=== PATIENT | female | born 2005 | race Caucasian/White ===

== ENCOUNTER 2024-08-06 12:00 | Emergency (ER) | payer BC, SELFPAY ==
[2024-08-06] VITALS (17 sets, daily range): BP systolic 97–119; BP diastolic 65–92; PULSE 66–129; RESP 16; TEMP 36.6; O2SAT 96–100
--- NOTE | ~2024-08-06 | XR_ITS ---
Clinical Indication: Syncope PA and lateral views of the chest: Comparison: None Findings: The lungs are clear, without evidence of focal consolidation or pleural effusion. Cardiome diastinal silhouette is within normal limits. Bones and soft tissues are unremarkable. Impression: Normal chest. Reviewed, dictated and finalized at location . Impression: Normal chest.
--- NOTE | 2024-08-06 12:13 | ECG_ITS ---
Test Date: 2024-08-06 12:23:59 Measurements Intervals [place] Rate: 78 P: 40 VA: 147 QRS: 38 QRSD: 86 T: 23 QT: 381 QTc: 434 Interpretive Statements SINUS RHYTHM WITH SINUS ARRHYTHMIA BASELINE ARTIFACT- III, V1-V6 NORMAL ECG No previous ECG available for comparison Electronically Signed On 08-06-2024 12:55:45 CDT by Rico Xavier D.O.
[2024-08-06 12:27] LABS: BEDSIDEPREGUCG Negative (Negative)
[2024-08-06 12:35] LABS: Basophils Percent Auto 0.5 % (0.2-1.2); Eosinophils Absolute Auto 0.1 K/mm3 (0-0.3); Eosinophils Percent Auto 0.9 % (0-4.4); Hematocrit 41.3 % (37.0-47.0); Hemoglobin 13.8 g/dL (12.0-15.0); Immature Granulocyte Absolute 0.01 K/mm3 (0.00-0.031); Immature Granulocyte Percent A 0.2 % (0-0.5); Lymphocytes Absolute Auto 2.31 K/mm3 (0.9-3.2); Lymphocytes Percent Auto 35.9 % (18.3-44.2); Mean Corpuscular HGB Conc 33.4 g/dl (32-36); Mean Corpuscular Hemoglobin 30.9 pg (26-34); Mean Corpuscular Volume 92.4 fl (80-100); Mean Platelet Volume 9.9 fl (7.4-10.4); Monocytes Absolute Auto 0.5 K/mm3 (0.1-0.6); Monocytes Percent Auto 8.2 % (2.6-8.5); Neutrophils Absolute Auto 3.5 K/mm3 (1.3-6.7); Neutrophils Percent Auto 54.3 % (45.5-73.1); Platelet Count Result 231 k/mm3 (150-375); Red Blood Count 4.47 M/mm3 (4.2-5.4); White Blood Count 6.4 K/mm3 (4.5-10.0)
[2024-08-06 12:51] LABS: Alanine Aminotransferase 19 U/L (6-35); Albumin Level 4.8 g/dL (3.5-5.1); Alkaline Phosphatase 73 U/L (38-126); Anion Gap 11 mmol/L (4-12); Aspartate Amino Transferase 24 U/L (14-36); Bilirubin,Total 0.4 mg/dL (0.2-1.3); Blood Urea Nitrogen 11 mg/dL (7-17); Calcium 9.6 mg/dL (8.4-10.2); Carbon Dioxide 23 mmol/L (22-30); Chloride 105 mmol/L (98-107); Estimated CRCL calculation 90 ml/min; Estimated Glomerular Filt Rate > 60; Glucose 87 mg/dL (65-110); Potassium 4.3 mmol/L (3.4-5.0); Sodium 139 mmol/L (137-145)
--- NOTE | 2024-08-06 13:01 | ED_ITS ---
HPI - Weakness General Chief complaint: Weakness Stated complaint: weakness, near syncopy Time Seen by Provider: 08/06/24 12:15 Source: patient Mode of arrival: ambulatory Limitations: no limitations History of Present Illness HPI Narrative: Patient is a 19 y/o female who presents to the ED with c/o lightheadedness. Patient reports over the past several days, she has been feeling lightheaded/dizzy. Worse with movement. She states she had a near syncopal episode in class yesterday. Did not fully lose consciousness. States she just feels off. C/o diffuse heaviness in extremities. Reports intermittent MEDINA. Denies current MEIDNA. Denies vision changes, focal numbness or weakness, CP, SOB, room spinning sensation, ear pain or ringing. States she has been eating and drinking normally. Related Data Allergies Allergy/AdvReac Type Severity Reaction Status Date / Time Penicillins Allergy Intermediate Rash Verified 08/06/24 12:25 Review of Systems 2 Review of Systems: All systems reviewed & are unremarkable except as noted in HPI. All systems reviewed & are unremarkable except as noted in HPI and below Exam 2 Narrative: GENERAL: Well appearing, thin, non-toxic, in no acute distress. HEAD: Normocephalic, atraumatic. EENT: PERRL/EOMI, conjunctiva clear, no nystagmus. TMs clear bilaterally. Small amount of cerumen in left ear canal without obstruction or impaction. RESPIRATORY: Airway patent, respirations nonlabored. Clear to auscultation bilaterally, no rales, rhonchi, wheezing. CARDIOVASCULAR: Regular rate and rhythm without murmurs, rubs, or gallops. Peripheral pulses intact. MUSCULOSKELETAL: Moves all extremities. No gross deformities. No peripheral edema. SKIN: Warm, dry, normal color. NEURO: A&O X3. Speech clear. Cranial nerves II-XII grossly intact. Steady gait. No ataxic movements. Equal supervisor powder and primer canning strength bilaterally. Strength 5 of 5 in upper and lower extremities bilaterally. No focal deficits. PSYCHIATRIC: Appropriate mood and affect. Normal interaction. Course Vital Signs Vital signs: Vital Signs Temperature 97.8 F 08/06/24 12:03 Pulse Rate 115 H 08/06/24 12:03 Respiratory Rate 16 08/06/24 12:03 Blood Pressure 113/77 08/06/24 12:03 Pulse Oximetry 100 08/06/24 12:03 Oxygen Delivery Room Air 08/06/24 12:03 Temperature 97.8 F 08/06/24 12:03 Pulse Rate 91 08/06/24 14:00 Respiratory Rate 16 08/06/24 12:03 Blood Pressure 105/75 08/06/24 13:01 Pulse Oximetry 100 08/06/24 14:00 Oxygen Delivery Room Air 08/06/24 12:03 MDM - Weakness MDM Narrative Medical decision making narrative: Patient presented to ED with several day history of lightheadedness. States she just feels off. Patient was initially mildly tachycardic upon arrival. This was improved by the time of my evaluation. No significant orthostatic hypotension noted with orthostatic VS. HR did increase slightly with sitting to standing. Will initiate fluids. Neurologically intact. No focal deficits appreciated on exam. Laboratory studies are otherwise fairly unremarkable. No leukocytosis or anemia. Stable electrolytes. Stable kidney function. UA without signs of infection. Urine negative. Chest x-ray is clear. EKG without ischemic changes. Discussed overall reassuring workup with patient. She is feeling improved after fluids. Feel she is safe for discharge home at this time. Recommended close follow-up with PCP for further evaluation. Recommended she continue to stay well hydrated at home, given strict return precautions. She agrees with plan. Discharged in stable condition. Medical Records Attestation: I reviewed the patient's medical records. Lab Data Attestation: I reviewed the patient's lab results. 08/06/24 12:21 08/06/24 12:21 Labs: Lab Results 08/06/24 08/06/24 08/06/24 Range/Units 12:20 12:21 12:26 WBC 6.4 (4.5-10.0) K/mm3 RBC 4.47 (4.2-5.4) M/mm3 Hgb 13.8 (12.0-15.0) g/dL Hct 41.3 (37.0-47.0) % MCV 92.4 (80-100) fl MCH 30.9 (26-34) pg MCHC 33.4 (32-36) g/dl RDW 12.0 (11.5-14.5) % Plt Count 231 (150-375) k/mm3 MPV 9.9 (7.4-10.4) fl Immature Gran % (Auto) 0.2 (0-0.5) % Neut % (Auto) 54.3 (45.5-73.1) % Lymph % (Auto) 35.9 (18.3-44.2) % [place] % (Auto) 8.2 (2.6-8.5) % Eos % (Auto) 0.9 (0-4.4) % Baso % (Auto) 0.5 (0.2-1.2) % Lymph # (Auto) 2.31 (0.9-3.2) K/mm3 [place] # (Auto) 0.5 (0.1-0.6) K/mm3 Eos # (Auto) 0.1 (0-0.3) K/mm3 Baso # (Auto) 0.0 (0.0-0.1) K/mm3 Abs Immat Gran (auto) 0.01 (0.00-0.031) K/mm3 Absolute Neuts (auto) 3.5 (1.3-6.7) K/mm3 Absolute Nucleated RBC 0.000 (0.0-0.012) K/mm3 Nucleated RBC % 0.0 (0.0-0.2) % Sodium 139 (137-145) mmol/L Potassium 4.3 (3.4-5.0) mmol/L Chloride 105 (98-107) mmol/L Carbon Dioxide 23 (22-30) mmol/L Anion Gap 11 (4-12) mmol/L BUN 11 (7-17) mg/dL Creatinine 0.61 L (0.7-1.0) mg/dL Estim Creat Clear Calc 90 ml/min Estimated GFR > 60 (59 - ) Glucose 87 (65-110) mg/dL Calcium 9.6 (8.4-10.2) mg/dL Magnesium 1.9 (1.6-2.3) mg/dL Total Bilirubin 0.4 (0.2-1.3) mg/dL AST 24 (14-36) U/L ALT 19 (6-35) U/L Alkaline Phosphatase 73 (38-126) U/L Total Protein 8.0 (6.3-8.2) g/dL Albumin 4.8 (3.5-5.1) g/dL Urine Color (Yellow) Urine Appearance (Clear) Urine pH (5.0-9.0) Ur Specific [place] (1.001-1.035) Urine Protein (Negative) mg/dL Urine Glucose (UA) (Negative) mg/dL Urine Ketones (Negative) mg/dL Ur Blood (Man) (Negative) Urine Nitrate (Negative) Urine Bilirubin (Negative) Urine Urobilinogen (<2.0) mg/dL Leukocyte Esterase Rfl (Negative) FILOMENA/UL Urine RBC (0-2) /hpf Urine WBC (0-3) /hpf Ur Squamous Epith Cells (Few) /hpf Urine Bacteria /hpf Urine Casts POC Urine HCG, Qual Negative (Negative) 08/06/24 Range/Units 13:44 WBC (4.5-10.0) K/mm3 RBC (4.2-5.4) M/mm3 Hgb (12.0-15.0) g/dL Hct (37.0-47.0) % MCV (80-100) fl MCH (26-34) pg MCHC (32-36) g/dl RDW (11.5-14.5) % Plt Count (150-375) k/mm3 MPV (7.4-10.4) fl Immature Gran % (Auto) (0-0.5) % Neut % (Auto) (45.5-73.1) % Lymph % (Auto) (18.3-44.2) % [place] % (Auto) (2.6-8.5) % Eos % (Auto) (0-4.4) % Baso % (Auto) (0.2-1.2) % Lymph # (Auto) (0.9-3.2) K/mm3 [place] # (Auto) (0.1-0.6) K/mm3 Eos # (Auto) (0-0.3) K/mm3 Baso # (Auto) (0.0-0.1) K/mm3 Abs Immat Gran (auto) (0.00-0.031) K/mm3 Absolute Neuts (auto) (1.3-6.7) K/mm3 Absolute Nucleated RBC (0.0-0.012) K/mm3 Nucleated RBC % (0.0-0.2) % Sodium (137-145) mmol/L Potassium (3.4-5.0) mmol/L Chloride (98-107) mmol/L Carbon Dioxide (22-30) mmol/L Anion Gap (4-12) mmol/L BUN (7-17) mg/dL Creatinine (0.7-1.0) mg/dL Estim Creat Clear Calc ml/min Estimated GFR (59 - ) Glucose (65-110) mg/dL Calcium (8.4-10.2) mg/dL Magnesium (1.6-2.3) mg/dL Total Bilirubin (0.2-1.3) mg/dL AST (14-36) U/L ALT (6-35) U/L Alkaline Phosphatase (38-126) U/L Total Protein (6.3-8.2) g/dL Albumin (3.5-5.1) g/dL Urine Color Yellow (Yellow) Urine Appearance Clear (Clear) Urine pH 7.5 (5.0-9.0) Ur Specific [place] 1.004 (1.001-1.035) Urine Protein Negative (Negative) mg/dL Urine Glucose (UA) Negative (Negative) mg/dL Urine Ketones Negative (Negative) mg/dL Ur Blood (Man) 3+ H (Negative) Urine Nitrate Negative (Negative) Urine Bilirubin Negative (Negative) Urine Urobilinogen 0.2 (<2.0) mg/dL Leukocyte Esterase Rfl Trace H (Negative) FILOMENA/UL Urine RBC 0-2 (0-2) /hpf Urine WBC 0-5 (0-3) /hpf Ur Squamous Epith Cells Few (Few) /hpf Urine Bacteria None seen /hpf Urine Casts 0-2 POC Urine HCG, Qual (Negative) Imaging Data Attestation: I personally reviewed and interpreted this imaging study as follows: Radiologist's impression: ITS Impressions Chest X-Ray 08/06/24 13:15 Impression: Normal chest. ECG Data EKG #1: Attestation: I personally reviewed and interpreted this ECG as follows: ECG completion date: 08/06/24 ECG completion time: 12:23 EKG Interpretation: normal rate (78), sinus rhythm (With sinus arrhythmia), no ST changes and other (baseline artifact/wander) Discharge Plan Discharge Clinical Impression: Positional lightheadedness Patient Disposition: Home, Self-Care Condition: Stable Instructions: Antibiotic Form, Near Syncope (ED), Lightheadedness (ED) Additional Instructions: Your workup here was reassuring. Stay well hydrated at home. Recommend small frequent meals throughout the day. Follow-up with your primary care doctor for further evaluation. Return to ED if you experience worsening or severe symptoms, passing out, unable to keep down food or drink, chest pain, difficulty breathing, severe dizziness, or any other symptoms of concern. Patient Language: Swedish Follow-up/Referrals: Fidel Curry MD [Physician] - (PRIMARY CARE) UNKNOWN,DOCTOR [Primary Care Provider] - Time of Disposition: 14:55
[2024-08-06] MEDS: SODIUM CHLORIDE 0.9% IV 1,000 ML 999 ML IV CONT (13:13)
--- OUTSIDE RECORDS SUMMARY | 2024-08-06 13:25 | XMS_ITS ---
Author Organization [facility], [facility]. 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 Already a PPD placed, going he would read Immunizations up-to-date. I am concerned that she may require blood titers drawn, she will investigate. Likely needs a varicella, rubella and hepatitis-B sexually active but intolerant of systemic oral contraceptives. We discussed options, perhaps IUD would be ideal. I asked her to do some research on this, told her that Dr. 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 Already a PPD placed, going he would read Immunizations up-to-date. I am concerned that she may require blood titers drawn, she will investigate. Likely needs a varicella, rubella and hepatitis-B sexually active but intolerant of systemic oral contraceptives. We discussed options, perhaps IUD would be ideal. I asked her to do some research on this, told her that Dr. 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 TAVisual Acuity complete (OD 20/25, OS 20/70)-- states she is awaiting prescription glassesRoom 1Visual Acuity * HPI: D EPRESSION SCREENING: PHQ-2 (2015 Edition) L ittle interest or pleasure in doing things? Not at all, Feeling down, depressed, or hopeless? Not at all. [age]-year-old here for physical exam. yanelis oinereyda to be attending nursing school. Already had a PPD placed. Complete immunizations, she has not sure if she needs to get blood titers drawn and a Monogamous relationship, sexually active. Found the control pill intolerable as far as mood changes and weight gain. We discussed other options. * Medical History: * Surgical History: D enies Past Surgical History * Ocular Surgical History: * Hospitalization/Major Diagno stic Procedure: D enies Past Hospitalization * Family History: F ather: alive. M other: alive. NONE. * Social History: T OBACCO USE: T OBACCO USE - A re you a: n ever Tobacco user A NAVNEET-C: A NAVNEET C - H ow often did you have a drink containing alcohol in the past year? N ever (0 points) H ow many drinks did you have on a typical day when you were drinking in the past year? 1 or 2 (0 points) H ow often did you have six or more drinks on one occasion in the past year? N ever (0 points) C OMPREHENSIVE HEALTH ASSESSEMENT: M arital status: Single. 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 * Medications: D iscontinuedNorgestim-Eth Estrad Triphasic 0.18/0.215/0.25 MG-25 MCG Tablet 1 tablet Orally Once a day Medication List reviewed and reconciled with the patientDiscontinued Norgestim-Eth Estrad Triphasic 0.18/0.215/0.25 MG-25 MCG Tablet 1 tablet Orally Once a day Medication List reviewed and reconciled with the patient * Allergies: P enicillin: hives - AllergyAmoxicillin: hives - Allergyno[Allergies Verified] Objective: * Vitals: H t:61in, Wt:116.6lbs, BMI:22.03Index, BP-Treatment: 100/70 mm HG, HR: 84 /min, Temp: 97.8 F, BMI Percentile: 54.25, Height Percentile: 9.85, Vision (L): 20/70 L Eye, Vision (R): 20/25 R Eye. * Examination: Pravin modesta focused exam: G eneral: Cooperative. No acute distress. HEENT: Normocephalic. Pupils equal round and reactive to light and accommodation bilaterally. No conjunctiva injection. Tympanic membranes clear bilaterally. Nasal mucosa pink and moist. Oropharynx clear without erythema or exudate. Moist oral mucosa. Neck: Supple, nontender, no lymphadenopathy. No thyromegaly. Lungs: Clear to auscultation bilaterally. No wheezes, rales, or rhonchi. Cardiovascular: Heart regular rate and rhythm, no murmurs, rubs, or gallops. Abdomen: Soft, nontender, nondistended, normoactive bowel sounds. Extremities: No edema. Skin: No rashes. Neuro: No gross focal deficits. No motor tics. Psych: Appropriate affect. Well kempt. Good eye contact. Normal speech pattern. . Therapeutic Interventions: Assessment: * Assessment: 1. E ncounter for general adult medical examination without abnormal findings - Z00.00 (Primary) 2 . D ysparjimi, female - N94.10 Plan: * Treatment: * Procedure Codes: 9 9173 VISUAL ACUITY SCREEN, Modifiers: 59 Care Plan: * Problems: * Images: Billing Information: * Visit Code: 47678 Preventive Care Est Pt. Age 18-39. * Procedure Codes: 39417 VISUAL ACUITY SCREEN. Modifiers: 59 Care Plan Details* * Sign off status: Completed true * Provider: Inez Monreal MD Date: 0 11/06/2023 Generated for Felisa dawn/Ed/eTaldasmitting on: 0 08/06/2024 01:25 PM CDT History and Physical Notes * HPI (History of Present Illness) Category Sub-Category Detail Notes Category Not es DEPRESSION SCREENING PHQ-2 (2015 Edition) Little interest or pleasure in doing things? Not at all, Feeling down, depressed, or hopeless? Not at all 18-year-old here for physical exam. 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 Already had a PPD placed. Complete immunizations, she has not sure if she needs to get blood titers drawn and a Monogamous relationship, sexually active. Found the control pill intolerable as far as mood changes and weight gain. We discussed other options Examination Category Sub-Category Detail Notes Category Not es Problem focused exam General: Cooperative. No acute distress. HEENT: Normocephalic. Pupils equal round and reactive to light and accommodation bilaterally. No conjunctiva injection. Tympanic membranes clear bilaterally. Nasal mucosa pink and moist. Oropharynx clear without erythema or exudate. Moist oral mucosa. Neck: Supple, nontender, no lymphadenopathy. No thyromegaly. Lungs: Clear to auscultation bilaterally. No wheezes, rales, or rhonchi. Cardiovascular: Heart regular rate and rhythm, no murmurs, rubs, or gallops. Abdomen: Soft, nontender, nondistended, normoactive bowel sounds. Extremities: No edema. Skin: No rashes. Neuro: No gross focal deficits. No motor tics. Psych: Appropriate affect. Well kempt. Good eye contact. Normal speech pattern.
--- OUTSIDE RECORDS SUMMARY | 2024-08-06 13:25 | XMS_ITS | Clinical Summary ---
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 Active Acetaminophen (TYLENOL PO) Take 2 Capsules by mouth as needed. 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 Gender Identity Not on file Sexual Orientation Not on file Last Filed Vital Signs Vital Sign Reading Time Taken Comments Blood Pressure 97/67 01/18/2021 3:30 PM CDT Pulse 91 01/18/2021 3:30 PM CDT Temperature 37.8 C (100 F) 01/18/2021 3:30 PM CDT Respiratory Rate 20 01/18/2021 3:30 PM CDT Oxygen Saturation 98% 01/18/2021 3:30 PM CDT Inhaled Oxygen Concentration - - Weight 46 kg (101 lb 6.4 oz) 01/18/2021 3:30 PM CDT Height 152.4 cm (5') 01/18/2021 3:30 PM CDT Body Mass Index 19.8 01/18/2021 3:30 PM CDT Plan of Treatment Health Maintenance Due Date Last Done Comments Hepatitis C Virus (HCV) Screening 2004 Meningococcal B Immunization (1 of 2 - Standard) 2020 Hepatitis B Immunization (1 of 3 - 19+ 3-dose series) 2023 Influenza Immunization (#1) 2024 02/06/2006, 1 2004 SARS-COV-2 Immunization (2 - season) 2024 12/21/2020 Respiratory Syncytial Virus (RSV) Immunization (Adult) (1 - 1-dose 75+ series) 2079 Pneumococcal Immunization Combined Aged Out 07/03/2005, 2004, 2004, Additional history exists No longer eligible based on patient's age to complete this topic DTaP/Tdap/Td Immunization Discontinued 06/25/2015 TdaP Immunization Completed 06/25/2015 Human Papillomavirus (HPV) Immunization Completed 08/10/2017, 06/25/2015 Meningococcal Immunization (ACWY) Completed 10/28/2020, 06/25/2015 Rotavirus Immunization Aged Out No lo nger eligible based on patient's age to complete this topic Insurance [facility] Care Teams Forklift Picker Relationship Specialty Start Date End Date Kevan Currie MD [address] [place] [address] PCP - General 05/09/07
--- OUTSIDE RECORDS SUMMARY | 2024-08-06 13:25 | XMS_ITS | Patient Health Record ---
Author Organization [facility]. Address [address] [place], [place] [id number] Care Team Providers Care Health Actuary Name Role Phone Frances Sharpe Primary Care Provider Segun Monreal Unavailable [phone] Allergies Allergen (clinical drug ingredient) Drug/Non Drug Allergy documented on EMR Reaction Allergy Type Onset Date Status amoxicillin Amoxicillin hives Drug Allergy Act teresita Penicillin hives Drug Allergy Active Reason For Referral No Information Immunizations Vaccine Route Administration Date Status Comme nts Varivax Unknown 03/10/2005 Administered See scanned doc TB Varivax Unknown 03/13/2008 Administered See scanned doc TB TDaP over 7 yrs. (Adacel) Unknown 06/25/2015 Administer ed See scanned doc TB Prevnar PCV7 Unknown 2004 Administered See scanne d doc TB Prevnar PCV7 Unknown 2004 Administered See scanne d doc TB Prevnar PCV7 Unknown 2004 Administered See scanne d doc TB Prevnar PCV7 Unknown 07/03/2005 Administered See scanne d doc TB Poliovirus - IPV Unknown 2004 Administered See sc anned doc TB Poliovirus - IPV Unknown 2004 Administered See sc anned doc TB Poliovirus - IPV Unknown 03/13/2008 Administered See sc anned doc TB MMR Unknown 03/10/2005 Administered See scanned doc TB MMR Unknown 03/13/2008 Administered See scanned doc TB Meningococcal MCV4P Unknown 06/25/2015 Administered See scanned doc TB Meningococcal MCV4P Unknown 10/28/2020 Administered See scanned doc TB HPV (unspecified formulation) Unknown 06/25/2015 Administered See scanned doc TB HPV (unspecified formulation) Unknown 08/10/2017 Administered See scanned doc TB Hib (unspecified formulation) Unknown 2004 Administered See scanned doc TB Hib (unspecified formulation) Unknown 2004 Administered See scanned doc TB Hib (unspecified formulation) Unknown 2004 Administered See scanned doc TB Hepatitis B (unspecified formulation) Unknown 2004 Administered See scanned doc TB Hepatitis B (unspecified formulation) Unknown 2004 Administered See scanned doc TB Hepatitis B (unspecified formulation) Unknown 2004 Administered See scanned doc TB Hep A (unspecified formulation) Unknown 02/06/2006 Administered See scanned doc TB Hep A (unspecified formulation) Unknown 03/19/2009 Administered See scanned doc TB DTaP, younger than 7yrs Unknown 2004 Administered See scanned doc TB DTaP, younger than 7yrs Unknown 2004 Administered See scanned doc TB DTaP, younger than 7yrs Unknown 2004 Administered See scanned doc TB DTaP, younger than 7yrs Unknown 07/03/2005 Administered See scanned doc TB DTaP, younger than 7yrs Unknown 03/13/2008 Administered See scanned doc TB Social History Tobacco Use: Social History Observation Description Date Details (start date - stop date) Never Smoker NA - NA Sex Assigned At : Social History Observation Description Sex Assigned At Female TOBACCO USE - Question Answer Notes Are you a: never Tobacco user Section Notes: no tobacco, no etoh, single, Jr @ [employer] (21-22) no tobacco, no etoh, single, Freshman @[employer] no tobacco, no etoh, single, Freshman @[employer] no tobacco, no etoh, single, no children, 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. [address] [place] [address] [place] [id number] 11/06/2023 Segun Monreal Dyspareunia, female N94.10 and Encounter for general adult medical examination without abnormal findings Z00.00 [facility]. [address] [place], [place] [id number] 10/31/2023 Frances Sharpe [facility] [address] [place], [place] [id number] 10/31/[address] [facility]. [address] [place], [place] [id number] 11/06/2023 Frances Sharpe Assessments Encounter Date Diagnosis (ICD Code) Assessment Notes Treatment Notes Treatment Clinical Notes Section Notes 11/06/2023 Encounter for general adult medical examination [...] and JANENE Hudson place these on site 11/06/2023 Dyspareunia, female (ICD-10 - N94.10) Plan Of Treatment No Information Insurance Providers Payer Name Payer Address Payer Phone Subscriber Number Group Number Insured Name Patient Relationship to Insured Coverage Start Date Coverage End Date [facility] [address] [place] [address] [id number] Rick Renee Child - Insured does not have Financial Responsibility (includes legally adopted child) Medical (General) History Surgical History Surgery Date(Month/Year)
--- OUTSIDE RECORDS SUMMARY | 2024-08-06 13:25 | XMS_ITS ---
Author Organization [facility] Address [address] [place], [place] [id number] Care Team Providers Care Chief Administrative Officer Name Role Phone Frances Sharpe Primary Care Provider REASON FOR VISIT Physical Paperwork Social History Sex Assigned At : Social History Observation Description Sex Assigned At Female Encounters Encounter Location Date Provider Diagnosis [facility] [address], [place] [id number] 11/06/2023 Frances Sharpe Plan Of Treatment No Information Progress Notes * Charli MONROE NDOB:[birth year] (18 yo F)Acc No.[id number]:11/06/2023 Patient: Andrei Charli HUTCHINSON :2005 A ge:18 Y S ex:Female Address:[address], [place], [address] * true * Date: Generated for Printi ng/Fahaimg/eTransmitting on: 0 08/06/2024 01:24 PM CDT
--- OUTSIDE RECORDS SUMMARY | 2024-08-06 13:25 | XMS_ITS ---
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
--- OUTSIDE RECORDS SUMMARY | 2024-08-06 13:25 | XMS_ITS | Continuity of Care Document ---
Author Organization [facility], [place] Address [address] [place] [address] Phone Care Team Providers Care Photographic Engineer Name Role Phone Ann Alvarado OD Unavailable Unavailable Allergies, Adverse Reactions, Alerts Substance Reaction Status Criticality Penicillins Hives / Skin Rash(mild) Active Low amoxicillin Hives / Skin Rash(mild) Active Low Medications Medication Instructions Dosage Effective Dates (start - stop) Status Comments Zithromax Z-Angelo 250 mg tablet take 2 tablet by oral route every day for 1 day then 1 tablet (250 mg) by oral route once daily for 4 days 500 MG - No Longer Active Procedures Procedure Date EYE EXAM ESTABLISHED PAT Trini Hydrating Compress REFRACTION EYE EXAM, NEW PATIENT Vision [facility] frames purchases Single Vision Lens Lens Polycarb A/R Standard UV Lens EYE EXAM, EXISTING PATIENT VISION REFRACTION OPTIONAL UPDATE EYE EXAM, EXISTING PATIENT VISION REFRACTION NO UPDATE EYE EXAM, NEW PATIENT VISION Advance Directives Directive Yes / No Effective Date File Name No Information Encounters Encounter Description Practice Location Reason(s) For Visit Diagnoses Date Provider Providers Copied on Encounter [facility], [facility], [address] [place], [place], [id number] , [place] tel: [phone] [facility] bump (chief complaint)b ump (chief complaint) Chalazion left lower eyelidHordeolum internum left lower eyelid 1 Jenny Juarez. [address] [facility], [place], [place], [id number] , [place]. tel: [phone] [facility], [address] [place] [address], [facility] [place] [address] , [place] tel: [phone] [facility] squinting to see (chief complaint)s quinting to see (chief complaint) Myopia, bilateralRegular astigmatism, bilateralAnisometrop ia 9 Daniel Lieberman. [address] [place] [address], [facility] [place] [id number] , [place]. tel: [phone] [facility], [address] [place] [address], [facility] [place] [address] , [place] tel: [phone] [facility] No Information 5 Loco Pavonneth. [address] [place] [address], [place], [id number] , [place]. tel: [phone] [facility], [address] [place] [address], [facility] [place] [address] , [place] tel: [phone] [facility] blurry vision (chief complaint)b lurry vision (chief complaint) Examination of eyes and visionMyopia 5 Loco Julioh. [address] [facility], [place], [address] , [place]. tel: [phone] [facility], [address] [place] [address], [facility] [place] [address] , [place] tel: [phone] [facility] no problems with V/A and no complaints (chief complaint) Examination of eyes and visionExamination of eyes and vision 2 Loco Julioh. [address] [place] [address], [place], [id number] , [place]. tel: [phone] [facility], [facility], [address] [facility], [place], [place], [id number] , tel: [phone] [facility] No Information 0 Loco Fairbanks. [address] [place], [place], [address] , [place]. tel: [phone] Family History Family Member Type Diagnosis Age At Onset Father Problem (finding) Alive and well Great Grandparents Problem (finding) cataract Great Grandfather Problem (finding) Heart Disease Grandmother Problem (finding) asthma Grandmothers Problem (finding) Arthritis Grandmothers Problem (finding) Diabetes mellitus Grandmother Problem (finding) stroke Grandparents Problem (finding) HBP Problem (finding) No Family history of Gl aucoma Problem (finding) No Family history of St rabismus Problem (finding) No Family hist ory of Respiratory Disease Problem (finding) No Family hist ory of Retinal Disorders Problem (finding) No Family hist ory of Macular Degeneration Payers Payer name Insurance type Covered republican ID Authoriza tion(s) [facility] [id number] Social History Type Description Quantity Date Captured Comments Alcohol Use Details Unknown Caffeine Use Details Unknown Tobacco Use Status Current non-smoker Smoking Status Never smoker Non-Smoking Tobacco Use Details : No Details Available : No Details Available Sex Female Chief Complaint And Reason For Visit From encounter dated '11/19/2020 10:45'. bump (chief complaint). Description: The 15 Year 8 Months old female presents for bump in the LLL. It started about 7 month(s) ago. Pt reports that she has had a bump on the inside of LLL for the past 7 mos. Pt states that she was using WWC TID OS but stopped about 1 month ago since WWC only seemedto make LLL more inflamed. Otherwise vision good, stable and constant D & N c gls OU. Pt did not bring gls. The patient denies pain or discomfort and COVID-19 symptoms - temperature normal. Pt is not using any eye meds OU. bump (chief complaint) Reason For Referral Reason For Referral No Information History Of Present Illness Encounter Date Complaint History Of Prese nt Illness bump The 15 Year 8 Mo nths old female presents for bump in the LLL. It started about 7 month(s) ago. Pt reports that she has had a bump on the inside of LLL for the past 7 mos. Pt states that she was using WWC TID OS but stopped about 1 month ago since WWC only seemed to make LLL more inflamed. Otherwise vision good, stable and constant D & N c gls OU. Pt did not bring gls. The patient denies pain or discomfort and COVID-19 symptoms - temperature normal. Pt is not using any eye meds OU. squinting to see The 13 Year 7 M onths old female presents for f/u Myopia. Pt reports squinting to see in the right eye and left eye since losing gls in 2016. It affects distance vision. Pt reports near is fine without correction. The patient denies pain or discomfort. Pt not using eye meds or OTC AT's. blurry vision The 9 Year 7 Mo nths old female presents for evaluation of Myopia OU. Pt reports blurry vision in the right eye and left eye. It started about 6 month(s) ago. The onset was gradual. It affects distance vision. It occurs when at school seeing the board. The patient denies pain or discomfort OU. Pt not using any eye meds OU. Functional Status Date Functional Assessmen t No Information Instructions Date Instruction Additional Infor maninder Impression/Plan Impression/Plan Follow up - 1-2 year s with [facility] for Ref T&D. Impression/Plan - Op tional gls Rx update can sharpen vision for distance. Can wear only for specific tasks & take off for physical activity. No glaucoma, ARMD, or cataracts. Recommend f/u q 1-2 years, [facility]CI if problems or changes. - Return in 1-2 year s with [facility] for Ref T & D. Related to Normal Healthy Exam Normal Healthy Exam OU - Pt has no need for glasses. Eyes are healthy. OU: New glasses Rx was not given today. Will continue to observe condition and or symptoms. Educational materials provided:none needed. Related to Normal Healthy Exam Assessments Type Assessment Date assessment Chalazion left lower eyelid assessment Hordeolum internum left lower ey elid Patient Care Teams Name Effective Dates (start - stop) Status Members No Information
[2024-08-06 13:39] LABS: Magnesium 1.9 mg/dL (1.6-2.3)
--- OUTSIDE RECORDS SUMMARY | 2024-08-06 13:44 | XMS_ITS | Continuity of Care Document ---
Author Organization [facility], [place] Address [address] [place] [address] Phone Care Team Providers Care International Nurse Name Role Phone Ann Alvarado OD Unavailable [...] Compress REFRACTION EYE EXAM, NEW PATIENT Vision [facility] frames purchases Single Vision Lens Lens Polycarb A/R Standard UV Lens EYE EXAM, EXISTING PATIENT VISION REFRACTION OPTIONAL UPDATE EYE EXAM, EXISTING PATIENT VISION REFRACTION NO UPDATE EYE EXAM, NEW PATIENT VISION Advance Directives Directive Yes / No Effective Date File Name No Information Encounters Encounter Description Practice Location Reason(s) For Visit Diagnoses Date Provider Providers Copied on Encounter [facility], [facility], [address] [place], [place], [id number] , [place] tel: [phone] [facility] bump (chief complaint)b ump (chief complaint) Chalazion left lower eyelidHordeolum internum left lower eyelid 1 Jenny Juarez. [address] [facility], [place], [place], [id number] , [place]. tel: [phone] [facility], [address] [place] [address], [facility] [place] [place] [place], [address] , [place] tel: [phone] [facility] squinting to see (chief complaint)s quinting to see (chief complaint) Myopia, bilateralRegular astigmatism, bilateralAnisometrop ia 9 Daniel Lieberman. [address] [place] [address], [facility] [place] [id number] , [place]. tel: [phone] [facility], [address] [place] [address], [facility] [place] [place], [address] , [place] tel: [phone] [facility] No Information 5 Loco Pavonneth. [address] [place] [address], [place], [id number] , [place]. tel: [phone] [facility], [address] [place] [address], [facility] [place] [id number] , [place] tel: [phone] [facility] blurry vision (chief complaint)b lurry vision (chief complaint) Examination of eyes and visionMyopia 5 Loco Julioh. [address] [facility], [place], [address] , [place]. tel: [phone] [facility], [address] [place] [address], [facility] [place], [address] , [place] tel: [phone] [facility] no problems with V/A and no complaints (chief complaint) Examination of eyes and visionExamination of eyes and vision 2 Loco Julioh. [address] [place] [address], [place], [address] , [place]. tel: [phone] [facility], [facility], [address] [facility], [place], [place], [address] , tel: [phone] [facility] No Information 0 Loco Fairbanks. [address] [place], [place], [address] , [place]. tel: [phone] Family History Family Member Type Diagnosis Age [...] Degeneration Payers Payer name Insurance type Covered democrat ID Authoriza tion(s) [facility] [id number] Social History Type Description Quantity Date Captured [...]
[2024-08-06 14:00] LABS: Add Urine Microscopic? YES; Appearance Urine Clear (Clear); Bacteria Urine None Seen /hpf; Bilirubin Urine Negative (Negative); Blood Urine 3+ (Negative); Color Urine Yellow (Yellow); Glucose Urine UA Negative (Negative); Ketones Urine Negative (Negative); Leukocyte Esterase Ur Trace LEU/UL (Negative); Nitrate Urine Negative (Negative); Non Pathogenic Casts 0-2; Protein Urine Negative (Negative); RBC Urine 0-2 /hpf (0-2); Specific Grav Ur 1.004 (1.001-1.035); Squamous Epithelial Cell Urine Few /hpf (Few); Urobilinogen Urine 0.2 mg/dL (<2.0); WBC Urine 0-5 /hpf (0-3); pH Urine 7.5 (5.0-9.0)
== END 2024-08-06 15:31 | disposition home or self-care (01) ==
PROVIDERS: Emergency Medicine; Emergency Provider Physician Assistant
DX: R42 Dizziness and giddiness (principal)
CPT/HCPCS: 36415; 71046; 80053; 81001; 81025; 83735; 85025; 93005; 96360; 99284; J7030